=== PATIENT | male | born 1965 | race Caucasian/White ===

== ENCOUNTER 2018-01-26 01:20 | Inpatient (IN) | payer OTHER ==
[~2018-01-26] VITALS: Ht 177.8 cm; Wt 64.0 kg
[2018-01-26] VITALS (17 sets, daily range): BP systolic 80–132; BP diastolic 45–75
[~2018-01-26 01:20] MED LIST: AMLOD-VALSA-HC1 EAC4 PO; ASPIR 8181 MG PO; IBUPROFEN 400400 M2 PO; PERCOCET 10-321 EACH PO
[2018-01-26 02:44] LABS: HEMATOCRIT 39.2 % (42.0-52.0); HEMOGLOBIN 13.6 gm/dL (14.0-18.0); MCH 35.3 pg (26.0-34.0); MCHC 34.7 g/dL (28.0-37.0); MCV 101.9 fL (80.0-100.0); NUCLEATED RBCS 0 /100WBC; PLATELET COUNT* 175 thou/uL (150-400); RBC 3.85 mil/uL (4.50-6.00); RDW-CV 13.8 % (10.5-14.5); WBC 22.6 thou/uL (4.0-11.0)
[2018-01-26 02:49] LABS: CALCIUM 8.2 mg/dL (8.5-10.1); POTASSIUM 3.8 mmol/L (3.5-5.1)
[2018-01-26 02:54] LABS: ALBUMIN 3.8 g/dL (3.4-5.0); TOTAL BILIRUBIN 0.7 mg/dL (<0.1-1.0)
[2018-01-26 02:55] LABS: TOTAL PROTEIN 6.7 g/dL (6.4-8.2)
[2018-01-26 03:04] LABS: ABSOLUTE LYMPHOCYTES 1.1 thou/uL (0.8-5.3); ABSOLUTE MONOCYTES 0.9 thou/uL (0.0-1.2); ABSOLUTE NEUTROPHILS 20.6 thou/uL (1.6-8.1); ANISOCYTOSIS Occasional; PLATELET ESTIMATE ADEQUATE; TOXIC GRANULATION 2+
[2018-01-26 03:05] LABS: HYPOCHROMASIA 1+
[2018-01-26 04:39] LABS: BE 1.6 mmol/L (-2 to +3); HCO3 24.1 mmol/L (22.0-26.0); PCO2 32.2 mmHg (35.0-45.0); PO2 97.4 mmHg (75.0-100.0); pH 7.492 (7.340-7.450)
[2018-01-26 05:56] LABS: URINE BILIRUBIN NEGATIVE (Negative); URINE BLOOD TRACE (Negative); URINE CLARITY CLEAR; URINE COLOR OTHER; URINE GLUCOSE-RANDOM NEGATIVE (Negative); URINE KETONES NEGATIVE (Negative); URINE LEUKOCYTES-REFLEX NEGATIVE (Negative); URINE NITRITE-REFLEX NEGATIVE (Negative); URINE PROTEIN NEGATIVE (Negative); URINE SPECIFIC GRAVITY <= 1.005 (1.005-1.030); URINE UROBILINOGEN 0.2 E.U./dl (0.2-1.0)
[2018-01-26 06:24] LABS: AMP/METHAMP Negative (Negative); BARBITURATES Negative (Negative); BENZODIAZEPINES Negative (Negative); COCAINE Negative (Negative); METHADONE Negative (Negative); OPIATES Negative (Negative); PCP Negative (Negative); THC Negative (Negative)
--- NOTE | 2018-01-26 17:48 | EKG ---
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 : 1965 Requested By: Marta Vizcarra Order Number: [id number] MD: Andrea Francis Measurements Intervals [place] Rate: 79 P: 0 IL: 51 QRS: 17 QRSD: 94 T: 48 QT: 443 QTc: 508 Interpretive Statements Sinus rhythm Short IL interval Anterior infarct, old Borderline ST elevation, lateral leads Tall T, consider metabolic/ischemic abnrm Prolonged QT interval Compared to ECG 12/29/2015 16:51:44 Short [place] interval now present ST (T wave) deviation now present T-wave abnormality now present Prolonged QT interval now present Myocardial infarct finding still present Electronically Signed On 01-26-2018 17:48:26 CDT by Andrea Francis [email or web address] <ELECTRONICALLY SIGNED> By: Andrea Francis MD, [facility] 01/26/18 1748 3 3 Andrea Francis MD, [facility] /EPI
--- NOTE | 2018-01-26 19:30 | NUR ---
PT REMAINS RESTLESS AND CONFUSED AT TIMES. PT CIWAS HIGH 15 WHEN PRN ATIVAN WAS GIVEN. HAS BEEN HERE ON AND OFF AND DID CALL TWICE TO CHECK ON ON PT.BOTTOM STRETCH WHITE UNDER GARMENT PLACED ON PT. SHIFT REPORT GIVEN.NEURO, NEPHROLOGY HAVE BEEN HERE TO SEE PT.PT BP BETTER THIS EVENING.
[2018-01-26 20:06] LABS: SODIUM 131 mmol/L (136-145)
[2018-01-26 20:12] LABS: GLUCOSE 107 mg/dL (70-99)
[2018-01-27] VITALS (15 sets, daily range): BP systolic 101–160; BP diastolic 52–732
[2018-01-27 01:00] LABS: GLUCOSE 120 mg/dL (70-99); SODIUM 130 mmol/L (136-145)
[2018-01-27 05:27] LABS: ALBUMIN 3.6 g/dL (3.4-5.0); CALCIUM 8.4 mg/dL (8.5-10.1); CREATININE 0.7 mg/dL (0.6-1.3); MAGNESIUM 2.2 mg/dL (1.8-2.4); PHOSPHORUS* 2.6 mg/dL (2.5-4.9); POTASSIUM 3.3 mmol/L (3.5-5.1)
--- NOTE | 2018-01-27 06:10 | NUR ---
PT. HAS BEEN VERY CONFUSED AND IMPULSIVE THROUGHOUT SHIFT. BARELY ABLE TO STATE HIS NAME TO THIS RN. HAS REMAINED IN SOFT WRIST BILAT RESTRAINTS THROUGHOUT SHIFT TO ENSURE SAFETY. ATIVAN GIVEN PER PRN ORDER. DR. BANEGAS CALLED CONCERNED ABOUT INCLUDING THIAMINE AND MULTIVITAMINS INTO PT'S IVF. DR. HELTON NOTIFIED, FLUIDS CHANGED TO INCLUDE THIAMINE AND MULTIVITAMINS. DR. RÍOS UPDATED ON PT'S NA LEVEL, ORDER TO CHANGE IVF RATE TO 150. MEZA CATHETER REMAINS IN PLACE, PT. SLEEPING AT THIS TIME, WILL CONTINUE TO MONITOR.
[2018-01-27 07:05] LABS: ABSOLUTE LYMPHOCYTES 1.2 thou/uL (0.8-5.3); ABSOLUTE MONOCYTES 1.1 thou/uL (0.0-1.2); ABSOLUTE NEUTROPHILS 8.4 thou/uL (1.6-8.1); BASOPHILS 0.2 %; EOSINOPHILS 0.1 %; HEMATOCRIT 37.6 % (42.0-52.0); HEMOGLOBIN 13.3 gm/dL (14.0-18.0); MCH 35.8 pg (26.0-34.0); MCHC 35.4 g/dL (28.0-37.0); MCV 101.3 fL (80.0-100.0); MONOCYTES 10.5 %; MPV 9.2 fl. (7.2-11.1); NUCLEATED RBCS 0 /100WBC; PLATELET COUNT* 166 thou/uL (150-400); POLYS 78.2 %; RBC 3.71 mil/uL (4.50-6.00); RDW-CV 13.9 % (10.5-14.5); WBC 10.7 thou/uL (4.0-11.0)
--- NOTE | 2018-01-27 19:57 | NUR ---
PT REMAINS ALERT AND ORIENTATED. PT CAN BE A LITTLE DISAGREEABLE AT TIMES. WAS HERE TODAY WITH FRIEND. PT EATING REGULAR DIET.PT KEEPS REMOVING 02 SAT, PT BECOMES SLIGHTLY IRRATABLE WILL CHECK PRN. DR ELENA OKAY WITH TRANSFERING TO TELE IF BED NEEDED.PT HAS DENIED ANY COMPLANTS OF PAIN THROUGH SHIFT. PT DID WELL WITH LUNCH TRAY AND PICKED AT SUPPER TRAY NOTED THAT HE WAS NOT VERY HUNGERY.NOTED PT HAS VARIED DENTAL CARRIES ON HIS FRONT TEETH.SHIFT REPORT GIVEN.
[2018-01-28] VITALS (12 sets, daily range): BP systolic 115–173; BP diastolic 65–95
[2018-01-28 04:07] LABS: ALBUMIN 2.8 g/dL (3.4-5.0); CALCIUM 7.9 mg/dL (8.5-10.1); CREATININE 0.6 mg/dL (0.6-1.3); PHOSPHORUS* 2.8 mg/dL (2.5-4.9); POTASSIUM 3.9 mmol/L (3.5-5.1)
--- NOTE | 2018-01-28 18:34 | NUR ---
PT DOWNGRADED TO TELEMETRY STATUS THIS AFTERNOON. PATIENT UP WALKING ON UNIT WITH PHYSICAL THERAPY TODAY. ASSESSMENT CHARTED. VSS. CIWA'S 1-2, PATIENT VERY PLEASANT THROUGHOUT THE DAY. NO COMPLAINTS OF PAIN THROUGHOUT THE DAY. PT ATE ALL MEALS AND TAKING IN ADEQUATE FLUIDS. NO PRN ATIVAN NEEDED.
--- NOTE | 2018-01-28 22:26 | NUR ---
PT TURNED BOILER HELPER LIGHT, RN FOUND PT HOLDING CENTRAL LINE DRESSING, PT STATED "WHY DO I HAVE THIS BANDAID ON MY NECK" CENTAL LINE APPEARS TO REMAIN IN TACT, CLEANED CENTRAL LINE INSERTION SITE AND REDRESSED SITE PER CENTRAL LINE POLICY, IVF STOPPED, ORDER PLACED FOR STAT PORTABLE CHEST XRAY TO VERIFY CENTRAL LINE REMAINS IN PLACE, IVF ON HOLD UNTIL CENTRAL LINE PLACEMENT VERIFIED BY RADIOLOGIST, PT EDUCATED CENTAL LINE RATIONALE INCLUDING LEAVING DRESSING IN PLACE. WILL CONTINUE TO MONITOR
[2018-01-29 00:27] VITALS: BP 146/83
--- NOTE | 2018-01-29 00:43 | NUR ---
PORTABLE CHEST XRAY RESULTS R IJ CENTRAL LINE WITHOUT COMPLICATIONS, D5W AT 100CC/HR PER INFUSION PUMP RESTARTED.
[2018-01-29 04:52] LABS: ABSOLUTE BASOPHILS 0.1 thou/uL (0.0-0.2); ABSOLUTE EOSINOPHILS 0.1 thou/uL (0.0-0.7); ABSOLUTE LYMPHOCYTES 1.5 thou/uL (0.8-5.3); ABSOLUTE MONOCYTES 0.8 thou/uL (0.0-1.2); ABSOLUTE NEUTROPHILS 4.2 thou/uL (1.6-8.1); EOSINOPHILS 1.5 %; HEMATOCRIT 35.7 % (42.0-52.0); HEMOGLOBIN 12.3 gm/dL (14.0-18.0); LYMPHOCYTES 22.9 %; MCH 35.7 pg (26.0-34.0); MCHC 34.6 g/dL (28.0-37.0); MCV 103.2 fL (80.0-100.0); MONOCYTES 11.9 %; MPV 7.5 fl. (7.2-11.1); NUCLEATED RBCS 0 /100WBC; PLATELET COUNT* 183 thou/uL (150-400); POLYS 62.7 %; RBC 3.46 mil/uL (4.50-6.00); RDW-CV 14.1 % (10.5-14.5); WBC 6.8 thou/uL (4.0-11.0)
[2018-01-29 05:15] LABS: PREALBUMIN 19.9 mg/dL (18.0-35.7)
[2018-01-29 05:17] VITALS: BP 135/71
[2018-01-29 05:28] LABS: ALBUMIN 3.1 g/dL (3.4-5.0); CALCIUM 8.2 mg/dL (8.5-10.1); CREATININE 0.7 mg/dL (0.6-1.3); POTASSIUM 3.9 mmol/L (3.5-5.1); TOTAL BILIRUBIN 0.4 mg/dL (<0.1-1.0)
--- NOTE | 2018-01-29 06:37 | NUR ---
PROGESSING TOWARDS GOALS, NA NORMALIZED 137 THIS AM, CIWA RANGING 2-4, ATTEMPTING TO GET OOB TO BSC TO URINATE WITHOUT ASSIST, STATES DOES NOT HAVE TIME TO USE CALL LIGHT, INCONTINENT OF URINE X4, DENIES PAIN OR DISCOMFORT, UP TO BSC WITH X1 ASSIST SOMEWHAT UNSTEADY GAIT, CONTINUES ON TAPERING LORAZEPAM FOR ETOH WIHDRAWL, LORAZEPAM 2MG PO X1 PRN GIVEN FOR C/O ANXIETY AND INCREASED RESTLESSNESS, LORAZEPAM EFFECTIVE PER PT VERBALIZATION AND DECREASED RESTLESSNESS NOTED. 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
[2018-01-29 07:30] VITALS: BP 139/63; BP 159/87
[2018-01-29 12:00] VITALS: BP 160/97
[2018-01-29 16:00] VITALS: BP 160/97
[2018-01-29 19:25] VITALS: BP 168/95
[2018-01-30 01:10] VITALS: BP 161/82
[2018-01-30 05:43] VITALS: BP 157/73
[2018-01-30 05:56] LABS: ABSOLUTE EOSINOPHILS 0.1 thou/uL (0.0-0.7); ABSOLUTE LYMPHOCYTES 1.6 thou/uL (0.8-5.3); ABSOLUTE MONOCYTES 0.9 thou/uL (0.0-1.2); ABSOLUTE NEUTROPHILS 3.4 thou/uL (1.6-8.1); BASOPHILS 0.7 %; EOSINOPHILS 2.5 %; HEMATOCRIT 35.1 % (42.0-52.0); LYMPHOCYTES 26.3 %; MCH 35.9 pg (26.0-34.0); MCHC 34.3 g/dL (28.0-37.0); MCV 104.4 fL (80.0-100.0); MONOCYTES 14.9 %; MPV 7.2 fl. (7.2-11.1); NUCLEATED RBCS 0 /100WBC; PLATELET COUNT* 221 thou/uL (150-400); POLYS 55.6 %; RBC 3.36 mil/uL (4.50-6.00); RDW-CV 14.2 % (10.5-14.5)
[2018-01-30 06:00] LABS: CALCIUM 8.6 mg/dL (8.5-10.1); CREATININE 0.7 mg/dL (0.6-1.3); POTASSIUM 4.1 mmol/L (3.5-5.1)
--- NOTE | 2018-01-30 06:52 | NUR ---
PROGRESSING TOWARDS GOALS, CIWA 2, RESTING QUIELTY WITH EYES CLOSED MOST OF NOC, EASILY AROUSABLE TO VERBAL STIMULI, DENIES PAIN OR DISCOMFORT, USING CALL LIGHT APPROPRIATELY MOST OF THE SHIFT, NO URINARY INCONTINENCE THIS SHIFT, UP TO BSC WITH X1 ASSIST UNSTEADY GAIT, RA, SAO2 =>96%, DENIES SOA, NSR TRACING REGULATORY ASSOCIATE, NA STABLE 137 THIS AM, BED ALARM ON FOR SAFETY, CALL LIGHT REMAINS IN REACH, BED REMAINS IN LOW AND LOCKED POSITION, HOURLY ROUNDING DONE PER POLICY.
--- NOTE | 2018-01-30 09:45 | CON ---
[address] [address] CONSULTATION Name: FORD CAVAZOS Room: [address] IN M.R.#: [id number] Admission: 01/26/18 Attend Phys: Judie Levi Discharge: Date of : 65 Report #: [id number] THIS REPORT FOR: //name// CC: Onelia Mccord CONSULTING PHYSICIAN: Dr. Mccord. REASON FOR CONSULT: Hyponatremia. HISTORY OF PRESENT ILLNESS: A 52-year-old gentleman admitted after sustaining a fall. He has a history of alcoholism, drinking 20+ beers daily. He has had significant hyponatremia and confusion. On admission, he had a sodium of 113. He was started on 3% saline. He required medications for agitation. He underwent a CT scan of the head which did not reveal any acute findings and is subsequently admitted to the ICU. His sodium has risen up to 121, 3% saline has been stopped. He was having some low blood pressures and is now on maintenance IV fluids. He presently is unable to provide any meaningful history. PAST MEDICAL HISTORY: Hypertension, chronic back pain, alcoholism. History of right iliac artery stenosis, degenerative joint disease. MEDICATIONS: Reviewed. SOCIAL HISTORY: Positive for tobacco and heavy alcohol intake. FAMILY HISTORY: Noncontributory in this 52-year-old gentleman. PHYSICAL EXAMINATION: VITAL SIGNS: Blood pressure 97/59, pulse 62, temperature 36.4, respirations 15. GENERAL: No acute distress. EYES: Closed. EARS: Externally normal. CARDIOVASCULAR: Regular rate. LUNGS: No crackles. ABDOMEN: Soft. LYMPHATICS: No pitting edema. NEUROLOGIC: Altered mental status. LABORATORY DATA: White cell count 23, hemoglobin 13.6, platelets 175. Sodium 113, potassium 3.8, chloride 77, bicarbonate 22, BUN 4, creatinine 1, glucose 162, calcium 8.2. Liver function is mildly elevated at 56 and 70, albumin 3.8. UA noted. ASSESSMENT: 1. Hyponatremia with an admission sodium of 113, increased up to 121 in about 5 hours, representing an 8 point increase in the setting of a [place] [address] CONSULTATION Name: FORD CAVAZOS Room: [address] IN [facility]#: [id number] Admission: 01/26/18 Attend Phys: Judie Levi Discharge: Date of : 65 Report #: [id number] of left benign granuloma and a CT scan of the head, which was unrevealing. He was on hydrochlorothiazide at home in addition to his heavy alcohol intake. 2. Alcoholism. 3. History of hypertension, now with some hypotension. 4. Right iliac artery stenosis. 5. Hypomagnesemia. His magnesium was 1.6. PLAN: 1. His sodium has rapidly corrected, the goal would be 6-8 mEq for 24 hours in this gentleman. He is at high risk for complications related to overly rapid correction of his hyponatremia. We will send a stat sodium now, and he may need re-lowering therapy if the trend continues. 2. Check urine sodium, urine osm and TSH. 3. Replace magnesium. 4. Check labs in a.m. Case discussed with Dr. Mccord. Thank you for requesting my opinion in the care and management of this patient. <ELECTRONICALLY SIGNED> By: Keith Sim MD 01/30/18 0945 [id number] [id number] Sim MD /nt
[2018-01-30 10:36] VITALS: BP 161/79
--- NOTE | 2018-01-30 11:00 | NUR ---
SPOKE WITH PT AND , PT SAID HE IS FEELING MUCH BETTER AND READY TO GO HOME. PT SAID THAT HE WILL BE CHANGING DOCTORS, WILL START GOING TO SEE DR. ELAINE DUFF. HAS TALKED WITH OFFICE TO CONFIRM THEY ARE TAKING NEW PTS BUT HAS NOT MADE AN APPT YET, TOLD TO CALL OFFICE TODAY TO GET APPT SCHEDULED. PT HAS BEEN GOING TO COUNSELING, SAYS FOR ANGER MANAGEMENT, PT SAYS IT IS FOR HIS DEPRESSION. HAS INFORMATION AT HOME AND IS TO CALL THEM TO SCHEDULE HIS NEXT APPT ONCE HE IS DISCHARGE. ASKED PT HOW MUCH HE WAS DRINKING, HE NEVER WOULD ANSWER THE QUESTION, SAID HE JUST DRANK BEER. DISCUSSED THE IMPORTANCE OF QUITTING DRINKING ALL TOGETHER. OFFERED ALCOHOL TREATMENT OPTIONS TO PT, HE SAID HE WOULD TALK TO HIS THERAPIST THAT HE IS ALREADY SEEING ABOUT IT. PT TO DISCHARGE HOME TODAY, DR WANTS HIM TO HAVE SOME P.T. DISCUSSED OPTIONS, PT PREFERS HH TO OUTPT THERAPY, DISCUSSED HH OPTIONS AND HE WANTS TO USE [facility]. CALLED [facility] AND FAXED REFERRAL/HH ORDERS. SPOKE WITH OUTSIDE OF THE ROOM, PROVIDED HER WITH ALCOHOL TREATMENT OPTIONS PER HER REQUEST. ALSO SUGGESTED THAT SHE CALL [facility] OR SET UP APPT TO SEE A COUNSELOR HERSELF. SHE SAID IT IS VERY HARD ON HER, TRYING TO GET PT TO TAKE CARE OF HIMSELF WHEN HE WON'T LISTEN TO HER.
--- NOTE | 2018-01-30 11:01 | NUR ---
PATIENT UP AMBULATING IN [place]UEL WITH PT GAIT STEADY. NO TREMORS NOTED ALERT AND ORIENTED.
[2018-01-30] MEDS ORDERED: NORVASC10 MG PO (11:24)
[2018-01-30 11:40] VITALS: BP 161/79
--- NOTE | 2018-01-30 12:46 | NUR ---
PATIENT DISCHARGED HOME WITH . INSTRUCTIONS GIVEN.
--- NOTE | 2018-02-01 20:02 | CON ---
[address] [address] CONSULTATION Name: FORD CAVAZOS Room: [address] IN M.R.#: [id number] Admission: 01/26/18 Attend Phys: Judie Levi Discharge: 01/30/18 Date of : 65 Report #: [id number] THIS REPORT FOR: //name// CC: Onelia Mccord DATE OF SERVICE: 01/26/2018 HISTORY OF PRESENT ILLNESS: This is a 52-year-old male patient who is unable to provide any history at all. The patient will not talk and will not respond. He does open his eyes. His is there and she provided some history. She indicated that this patient was told to get some anger management courses about a month ago. He started drinking very heavily and will drink up to 20 beers a day. He will also smoke very heavily. He continued that for at least one month and then wanted to go back to work yesterday. He had stopped drinking, but apparently had stopped drinking just about a day. He was noticed to have shakiness as well as delirium and it is not clear whether he really had a seizure or just the delirium or combination and then he was brought to Emergency Room. In the Emergency Room, this patient's sodium was found to be very low at 113 and that is being corrected in conjunction with Nephrology. He is pretty unresponsive at the moment. REVIEW OF SYSTEMS: I carried out 14 point review of systems. The indicated that he has some back pain, he has some hearing problem, he has hypertension and he is a . [facility] but he has declined that. This was the 14-point review of system, I could get from the . PAST MEDICAL HISTORY: Negative for seizures. FAMILY HISTORY: Negative for congenital epilepsy. SOCIAL HISTORY: He has a history of heavy alcoholism at least for 1 month and he is an everyday heavy smoker, which has been worse in the last month since he has been off work. PHYSICAL EXAMINATION: The patient's examination was pretty limited. He will not say anything. He will not follow any command. He will just look at me. I cannot make him move anything at all especially he just lay there in a position. I do not know about the sensation He is breathing alright. He is average built individual who does not have any dysmorphic features of eyes, ears and face. His blood pressure is 119/60, respirations 14 and pulse is 95. LABORATORY DATA: His white count is 22.6. He did have a CT scan of the head, which showed no acute process. He had a CT scan of the C-spine, which showed chronic [place] [address] CONSULTATION Name: FORD CAVAZOS Room: [address] IN .R.#: [id number] Admission: 01/26/18 Attend Phys: Judie Levi Discharge: 01/30/18 Date of : 65 Report #: [id number] IMPRESSION: This patient may have had a seizure secondary to hyponatremia and his heavy alcoholism and may be some withdrawal from there. Presently, he is completely unresponsive. Again that may be encephalopathy from hyponatremia and alcoholism. RECOMMENDATION: I talked to the patient's in detail. I discussed with her that I would like to do an MRI in this patient. There is no way we can do it at this stage. I will get an EEG done. I have asked the nurses to contact the admitting doctor about giving him some thiamine and multivitamin. His further workup will be done when we can do it. His blood pressure is also fluctuating that may aggravate his problem. The patient was discussed with the nurses and his records were reviewed and more than 50 minutes of time was spent taking care of this patient today and majority of that time was spent counseling the patient's and coordinating his care by talking to other health career services officer and reviewing the record. <ELECTRONICALLY SIGNED> By: Arnol Moreno MD 02/01/182001 1847 [id number] Moreno MD /srinivasa
--- NOTE | 2018-02-02 15:49 | NUR ---
CLINICAL INFO FAXED TO DR DUFF'S OFFICE FOR PT'S F/U VISIT [phone]
--- NOTE | 2018-02-03 07:31 | NUR ---
NOTIFIED BY [facility] THAT PT REFUSED HOME HEALTH.
== END 2018-01-30 12:30 | disposition home or self-care (01) | DRG 896 ==
LOC: M.ERS 01:20 → M.TBA-ER 04:28 → M.ICU 04:28
PROVIDERS: Emergency Medicine; Internal Medicine; Internal Medicine Nephrology; ADMIT Internal Medicine
DX: F10.231 Alcohol dependence with withdrawal delirium (principal); G93.41 Metabolic encephalopathy; E87.1 Hypo-osmolality and hyponatremia; R65.10 Systemic inflammatory response syndrome (SIRS) of non-infectious origin without acute organ dysfunction; I10 Essential (primary) hypertension; G89.29 Other chronic pain; M54.9 Dorsalgia, unspecified; H91.93 Unspecified hearing loss, bilateral; M19.90 Unspecified osteoarthritis, unspecified site; I70.8 Atherosclerosis of other arteries; E83.42 Hypomagnesemia; I95.9 Hypotension, unspecified; F17.210 Nicotine dependence, cigarettes, uncomplicated; Z79.899 Other long term (current) drug therapy; Z88.0 Allergy status to penicillin

== ENCOUNTER → 2019-05-18 | Outpatient (CLI) | payer OTHER ==
[~2019-05-18] MED LIST changes: +NORVASC10 MG PO
== END ==
LOC: M.ULTRA 07:58
DX: I65.23 Occlusion and stenosis of bilateral carotid arteries (principal)

== ENCOUNTER 2019-12-29 18:34 | Inpatient (IN) | payer OTHER ==
[~2019-12-29] VITALS: Ht 165.1 cm; Wt 67.6 kg
--- NOTE | ~2019-12-29 | CON ---
[address] [address] CONSULTATION Name: JAKUBMISHELFORD AYOUB Room: [address] IN M.R.#: [id number] Admission: 12/29/19 Attend Phys: Miladis Allen Discharge: Date of : 65 Report #: [id number] THIS REPORT FOR: //name// cc: Jaime Gray Brad DO ~ THIS REPORT FOR: //name// CC: Jaime Farris DATE OF SERVICE: 12/30/2019 HISTORY OF PRESENT ILLNESS: This is a pleasant 54-year-old gentleman with past medical history significant for chronic diarrhea, hypertension, who is presenting for evaluation. The patient reports that he initially presented to the hospital with severe dizziness. The patient reports having diarrhea for approximately 3 weeks prior to presentation. He reports having 2 bowel movements, which are loose and watery. He denies any abdominal pain, nausea, vomiting, cramping or weight loss. He denies any hematochezia. The patient has never had an EGD or colonoscopy. He denies any recent travel. PAST MEDICAL HISTORY: Hypertension, chronic diarrhea. PAST SURGICAL HISTORY: Nonsignificant. SOCIAL HISTORY: The patient has a 74-dzbj-epex smoking history. Denies any alcohol or recreational drug use. FAMILY HISTORY: No family history of colon cancer or Armando related neoplasia. REVIEW OF SYSTEMS: A comprehensive 10-point review of systems is negative except for what is mentioned in HPI. PHYSICAL EXAMINATION: VITAL SIGNS: Temperature 36.8, blood pressure 122/61, pulse ox 92% on room air, pulse rate 61, respiratory rate 16. GENERAL: The patient is alert, awake, oriented x 3. HEENT: Pupils are equal, round, reactive to light and accommodation. Mucous membranes are moist. There is no congestion. LUNGS: Clear to auscultation bilaterally. CARDIOVASCULAR: Rate and rhythm regular, S1, S2 present. ABDOMEN: Soft. There is no guarding or rigidity. ASSESSMENT AND PLAN: Pleasant 54-year-old gentleman presenting with hyponatremia and chronic diarrhea. I offered the patient endoscopic evaluation for his chronic diarrhea, but he refused. We will [place] [address] CONSULTATION Name: FORD CAVAZOS Room: [address] IN [facility]#: [id number] Admission: 12/29/19 Attend Phys: Miladis Allen Discharge: Date of : 65 Report #: [id number] workup and get a workup for secretory diarrhea. Further recommendations can be based on results. The patient can follow up with us on an as needed basis. By: 1904 María Elena Foley MD /srinivasa
[2019-12-29 18:53] VITALS: BP 176/69
[2019-12-29 19:48] LABS: ABSOLUTE BASOPHILS 0.1 thou/uL (0.0-0.2); ABSOLUTE EOSINOPHILS 0.1 thou/uL (0.0-0.7); ABSOLUTE LYMPHOCYTES 2.3 thou/uL (0.8-5.3); ABSOLUTE NEUTROPHILS 6.6 thou/uL (1.6-8.1); BASOPHILS 0.8 %; EOSINOPHILS 0.6 %; HEMATOCRIT 34.4 % (42.0-52.0); HEMOGLOBIN 12.2 gm/dL (14.0-18.0); LYMPHOCYTES 23.3 %; MCH 33.2 pg (26.0-34.0); MCHC 35.3 g/dL (28.0-37.0); NUCLEATED RBCS 0 /100WBC; PLATELET COUNT* 220 thou/uL (150-400); POLYS 65.3 %; RBC 3.66 mil/uL (4.50-6.00); RDW-CV 14.3 % (10.5-14.5)
[2019-12-29 19:55] LABS: CALCIUM 7.3 mg/dL (8.5-10.1); CREATININE 0.5 mg/dL (0.6-1.3); POTASSIUM 3.4 mmol/L (3.5-5.1)
[2019-12-29 20:07] LABS: ALBUMIN 3.7 g/dL (3.4-5.0); TOTAL BILIRUBIN 0.4 mg/dL (<0.1-1.0); TOTAL PROTEIN 6.5 g/dL (6.4-8.2)
[2019-12-29 20:14] LABS: URINE BILIRUBIN NEGATIVE (Negative); URINE BLOOD NEGATIVE (Negative); URINE CLARITY CLEAR; URINE COLOR YELLOW; URINE GLUCOSE-RANDOM NEGATIVE (Negative); URINE LEUKOCYTES-REFLEX NEGATIVE (Negative); URINE NITRITE-REFLEX NEGATIVE (Negative); URINE PROTEIN NEGATIVE (Negative); URINE UROBILINOGEN 0.2 E.U./dl (0.2-1.0)
[2019-12-29 20:16] LABS: URINE KETONES 3+ (Negative)
[2019-12-29 20:21] LABS: AMP/METHAMP Negative (Negative); BARBITURATES Negative (Negative); BENZODIAZEPINES Negative (Negative); COCAINE Negative (Negative); METHADONE Negative (Negative); OPIATES Negative (Negative); PCP Negative (Negative); THC Negative (Negative)
[2019-12-30] VITALS (15 sets, daily range): BP systolic 85–131; BP diastolic 41–66
[2019-12-30 01:36] LABS: HEMOGLOBIN 12.2 gm/dL (14.0-18.0); MCHC 34.8 g/dL (28.0-37.0); MCV 94.9 fL (80.0-100.0); RBC 3.69 mil/uL (4.50-6.00); RDW-CV 14.2 % (10.5-14.5); WBC 7.4 thou/uL (4.0-11.0)
--- NOTE | 2019-12-30 02:54 | NUR ---
PT. ADMITTED TO BED 6 AT 0003, ALERT AND ORIENTED, DROWSY 54 YEAR OLD MALE. DEHYDRATION/HYPONATREMIA/CHEST PAIN. PT. DENIED CHEST PAIN UPON ICU ADMISSION. ORIENTED TO CALL LIGHT, WILL CONTINUE TO MONITOR.
[2019-12-30 03:35] LABS: ANION GAP 7 mmol/L (7-16); BUN < 1 mg/dL (7-18); CALCIUM 7.5 mg/dL (8.5-10.1); CHLORIDE 97 mmol/L (98-107); CO2 25 mmol/L (21-32); CREATININE 0.5 mg/dL (0.6-1.3); GLUCOSE 86 mg/dL (70-99); POTASSIUM 3.9 mmol/L (3.5-5.1)
[2019-12-30 03:40] LABS: SODIUM 129 mmol/L (136-145)
--- NOTE | 2019-12-30 11:21 | EKG ---
[place] [address] ELECTROCARDIOGRAM REPORT Name: FORD CAVAZOS Room: [address] ADM IN M.R.#: [id number] Admission: 12/29/19 Attend Phys: Jules Farris Discharge: Date of : 65 Date of Service: 12/29/191927 Report #: [id number] THIS REPORT FOR: //name// [facility] ED Test Date: 2019-12-29 Test Time: 19:28:40 Pat Name: FORD CAVAZOS Department: Room: [facility] Gender: M Rn Navigator: [place] : 1965 Requested By: Lazara Morales Order Number: [id number] MD: Alexis Sorto Measurements Intervals [place] Rate: 88 P: 47 WI: 144 QRS: 23 QRSD: 96 T: 56 QT: 394 QTc: 477 Interpretive Statements Sinus rhythm Anterior infarct, old Baseline wander in lead(s) V2 Compared to ECG 01/26/2018 06:14:20 Short [place] interval no longer present ST (T wave) deviation no longer present T-wave abnormality no longer present Prolonged QT interval no longer present Myocardial infarct finding still present Electronically Signed On 12-30-2019 11:20:41 CDT by Alexis Sorto [email or web address] <ELECTRONICALLY SIGNED> By: Cheyenne Sorto MD, [facility] 12/30/19 1120 27 27 Cheyenne Sorto MD, [facility] /EPI
[2019-12-30 12:37] LABS: ALBUMIN 3.3 g/dL (3.4-5.0); CALCIUM 7.7 mg/dL (8.5-10.1); CREATININE 0.6 mg/dL (0.6-1.3); POTASSIUM 4.1 mmol/L (3.5-5.1); TOTAL BILIRUBIN 0.3 mg/dL (<0.1-1.0); TOTAL PROTEIN 6.2 g/dL (6.4-8.2)
--- NOTE | 2019-12-30 17:51 | NUR ---
PT'S A&O x4. VSS. STATES HE FEELS A LOT BETTER THAN YESTERDAY. PT REFUSED US CAROTIDS IT WAS DONE LAST MAY, PHYSICIAN NOTIFIED. NS CONTD AT 20 MLS/HR GI AND NEURO CONSULTED. PT OUT OF BED, WALKED FEW STEPS IN THE ROOM WITH THE HELP OF WALKER. RESTING IN THE BED MOST OF THE TIMES. TOLERATING DIET. UOP-2100 MLS.
[2019-12-31 02:06] LABS: GLYCOHEMOGLOBIN (HGB A1C) 5.4 % (4.8-5.6)
[2019-12-31 04:45] LABS: ABSOLUTE BASOPHILS 0.1 thou/uL (0.0-0.2); ABSOLUTE LYMPHOCYTES 2.4 thou/uL (0.8-5.3); ABSOLUTE MONOCYTES 0.9 thou/uL (0.0-1.2); ABSOLUTE NEUTROPHILS 4.3 thou/uL (1.6-8.1); BASOPHILS 0.8 %; EOSINOPHILS 0.6 %; HEMATOCRIT 37.4 % (42.0-52.0); HEMOGLOBIN 12.8 gm/dL (14.0-18.0); LYMPHOCYTES 30.6 %; MCH 32.5 pg (26.0-34.0); MCHC 34.2 g/dL (28.0-37.0); MCV 95.1 fL (80.0-100.0); MPV 8.4 fl. (7.2-11.1); NUCLEATED RBCS 0 /100WBC; PLATELET COUNT* 260 thou/uL (150-400); RBC 3.94 mil/uL (4.50-6.00); RDW-CV 14.8 % (10.5-14.5); WBC 7.7 thou/uL (4.0-11.0)
[2019-12-31 04:54] LABS: ALBUMIN 3.3 g/dL (3.4-5.0); ALKALINE PHOSPHATASE 44 U/L (46-116); ANION GAP 12 mmol/L (7-16); BUN 6 mg/dL (7-18); CALCIUM 8.2 mg/dL (8.5-10.1); CHLORIDE 100 mmol/L (98-107); CHOLESTEROL 155 mg/dL (<200); CO2 25 mmol/L (21-32); CREATININE 0.6 mg/dL (0.6-1.3); GLUCOSE 89 mg/dL (70-99); HDL CHOLESTEROL 40 mg/dL (>40); LDL CHOLESTEROL 85 mg/dL (<100); POTASSIUM 3.4 mmol/L (3.5-5.1); SGOT 17 U/L (15-37); SGPT 23 U/L (30-65); SODIUM 137 mmol/L (136-145); TC:HDL 3.9 Ratio (Not establshd); TOTAL BILIRUBIN 0.3 mg/dL (<0.1-1.0); TOTAL PROTEIN 6.3 g/dL (6.4-8.2); TRIGLYCERIDE 151 mg/dL (<150); VLDL 30 mg/dL (<40)
[2019-12-31 04:56] LABS: SERUM ASSESSMENT CLEAR
--- NOTE | 2019-12-31 06:15 | NUR ---
PATIENT SLEPT MOST OF THE NIGHT. IV FLUIDS CONTINUE TO INFUSE AT 20 ML/HR. PATIENT HAD NO COMPLAINTS OF PAIN. WILL CONTINUE TO MONITOR.
[2019-12-31 08:00] VITALS: BP 130/55
[2019-12-31 11:22] VITALS: BP 130/55
--- NOTE | 2019-12-31 12:10 | NUR ---
PT A&OX4 VSS. PT CONTINENT OF B/B. PT IV TO RAC DC'D PRIOR TO LEAVING UNIT. NO REDNESS/BLEEDING AT SITE. PT UP TO RESTROOM AND TO SHOWER. GAIT STEADY. DENIES PAIN, NAUSEA/VOMITING. PT DRESSED INDEPENDENTLY, NO DIFFICULTY. PT STATES UNDERSTANDING OF DC INSTRUCTIONS. PT CONTACTED FOR RIDE HOME. PT TRANSPORTED TO FRONT ENTRANCE BY NURSING STAFF BY WHEELCHAIR.
--- NOTE | 2019-12-31 12:20 | NUR ---
Pt lives at home with . No dc needs at this time; pt to dc home with .
== END 2019-12-31 12:10 | disposition home or self-care (01) | DRG 643 ==
LOC: M.ERS 18:34 → M.3W 22:05 → M.TBA-ER 22:05 → M.ICU 23:45 → M.3W 12-30 19:27
PROVIDERS: Physician Assistant; ADMIT Internal Medicine
DX: E22.2 Syndrome of inappropriate secretion of antidiuretic hormone (principal); G93.41 Metabolic encephalopathy; E44.0 Moderate protein-calorie malnutrition; I10 Essential (primary) hypertension; G89.29 Other chronic pain; K52.9 Noninfective gastroenteritis and colitis, unspecified; J44.9 Chronic obstructive pulmonary disease, unspecified; E87.6 Hypokalemia; Z79.899 Other long term (current) drug therapy; Z88.0 Allergy status to penicillin; Z82.49 Family history of ischemic heart disease and other diseases of the circulatory system; Z68.24 Body mass index [BMI] 24.0-24.9, adult